=== PATIENT | male | born 1960 ===

== ENCOUNTER 2019-08-13 08:48 | Emergency (ER) | payer SELFPAY ==
[~2019-08-13] VITALS: Ht 182.9 cm; Wt 104.5 kg
[2019-08-13 09:07] VITALS: Ht 182.9 cm; Wt 104.5 kg
[2019-08-13] MEDS ORDERED: ZOCOR10 MG PO (09:09)
[2019-08-13] MEDS ORDERED: BETAPACE 80 MG80 MG PO (09:09)
[2019-08-13] MEDS ORDERED: ELIQUIS5 MG PO (09:10)
[2019-08-13] MEDS ORDERED: LISINOPRIL5 MG PO (09:10)
[2019-08-13] MEDS ORDERED: PREDNISONE1 MG PO (11:48)
[2019-08-13] MEDS ORDERED: TYLENOL W/CODEI1 TAB PO (11:48)
== END 2019-08-13 14:47 | disposition home or self-care (01) ==
LOC: D.ER 08:48
DX: M79.642 Pain in left hand (principal); M79.641 Pain in right hand; Z86.73 Personal history of transient ischemic attack (TIA), and cerebral infarction without residual deficits; I10 Essential (primary) hypertension; I48.91 Unspecified atrial fibrillation